=== PATIENT | male | born 1930 | race Caucasian/White ===

== ENCOUNTER 2016-09-21 10:45 | Outpatient (CLI) | payer MEDICARE, BC ==
--- NOTE | 2016-09-21 18:35 | RAD ---
LEFT ELBOW 4 VIEWS: DATE: 09/21/16. No acute fracture was seen. A small joint effusion is suggested. There are some bony fragments jocelyn ng the medial and lateral aspects of the distal humerus that have the appearance of old injuries. O steophytes are seen in the joint. IMPRESSION: Small joint effusion and old traumatic changes. POS: HOME
== END 2016-09-21 10:46 | disposition home or self-care (01) ==
LOC: BURRAD 10:45
PROVIDERS: ATTEND Family Medicine
DX: M25.522 Pain in left elbow (principal)

== ENCOUNTER 2017-04-07 10:17 | Outpatient (CLI) | payer MEDICARE, BC ==
[2017-04-07 12:38] LABS: #Basophils 0.1 thou/uL (0.0-0.2); #Eosinphils 0.4 thou/uL (0.0-0.7); #Lymphocytes 1.5 thou/uL (1.20-3.40); #Monocytes 0.6 thou/uL (0.11-0.59); #Neutrophils 4.1 thou/uL (1.40-6.50); %Basophils 0.8 % (0.0-1.0); %Eosinophils 5.6 % (0.0-10.0); %Lymphocytes 23.3 % (21.0-51.0); %Monocytes 8.5 % (0.0-10.0); %Neutrophils 61.8 % (42.0-75.0); Hemoglobin 11.9 g/dL (14.0-18.0); Mean Corpuscular HGB CONC 33.9 g/dL (32.0-36.0); Mean Corpuscular Hemoglobin 33.6 pg (27.0-31.0); Mean Corpuscular Volume 99.2 fl (80.0-94.0); Mean Platelet Volume 6.5 fL (7.4-10.4); Platelet Count 225 thou/uL (130-400); RBC Distribution Width 12.7 % (11.5-14.5); Red Blood Cell (RBC) Count 3.53 mill/uL (4.70-6.10); White Blood Cell (WBC) Count 6.6 thou/uL (4.8-10.8)
[2017-04-07 12:51] LABS: ALT (SGPT) 19 U/L (8-55); AST (SGOT) 24 U/L (5-34); Albumin 4.1 g/dL (3.4-4.8); Alkaline Phosphatase 65 U/L (40-150); Anion Gap 12 mmol/L (10-20); BUN (Urea Nitrogen) 34 mg/dL (8.4-25.7); Bilirubin, Total 0.7 mg/dL (0.2-1.2); Calc. Creatinine Clearance 0 mL/min (70-130); Calcium 9.3 mg/dL (7.8-10.44); Carbon Dioxide 28 mmol/L (23-31); Cardiac Risk 2.4 (Less than 4.5); Chloride 109 mmol/L (98-107); Cholesterol 161 mg/dl (< 200 Desired); Estimated GFR-MDRD 54; Globulin 2.5 g/dL (2.4-3.5); Glucose 97 mg/dL (83-110); HDL Cholesterol 68 mg/dL (>60 Neg Risk); LDL Cholesterol, Calculated 87 mg/dL; Potassium 5.5 mmol/L (3.5-5.1); Protein, Total 6.6 g/dL (5.8-8.1); Sodium 143 mmol/L (136-145); Triglycerides 31 mg/dL (Less than 150)
== END 2017-04-07 10:18 | disposition home or self-care (01) ==
LOC: HPCALD 10:17
PROVIDERS: ATTEND Family Medicine
DX: E78.5 Hyperlipidemia, unspecified (principal); D53.9 Nutritional anemia, unspecified; I10 Essential (primary) hypertension
CPT/HCPCS: 36415; 80053; 80061; 84443; 85025

== ENCOUNTER 2017-04-15 10:56 | Outpatient (CLI) | payer MEDICARE, BC ==
[2017-04-15 11:35] LABS: Anion Gap 14 mmol/L (10-20); BUN (Urea Nitrogen) 30 mg/dL (8.4-25.7); Calc. Creatinine Clearance 0 mL/min (70-130); Calcium 8.4 mg/dL (7.8-10.44); Carbon Dioxide 24 mmol/L (23-31); Chloride 108 mmol/L (98-107); Estimated GFR-MDRD 57; Glucose 71 mg/dL (83-110); Potassium 4.8 mmol/L (3.5-5.1); Sodium 141 mmol/L (136-145)
== END 2017-04-15 10:57 | disposition home or self-care (01) ==
LOC: HPCALD 10:56
PROVIDERS: ATTEND Family Medicine
DX: I10 Essential (primary) hypertension (principal)
CPT/HCPCS: 36415; 80048

== ENCOUNTER 2020-01-13 16:29 | Emergency (ER) | payer MEDICARE, BC ==
[2020-01-13 17:31] LABS: ALT (SGPT) 126 U/L (8-55); AST (SGOT) 103 U/L (5-34); Albumin 4.2 g/dL (3.4-4.8); Alkaline Phosphatase 130 U/L (40-110); Anion Gap 24 mmol/L (10-20); BUN (Urea Nitrogen) 61 mg/dL (8.4-25.7); Bilirubin, Total 1.4 mg/dL (0.2-1.2); CK (CPK) 325 U/L (30-200); Calc. Creatinine Clearance 0 mL/min (70-130); Calcium 10.1 mg/dL (7.8-10.44); Carbon Dioxide 15 mmol/L (23-31); Chloride 101 mmol/L (98-107); Estimated GFR-MDRD 26; Globulin 3.1 g/dL (2.4-3.5); Glucose 111 mg/dL (83-110); Lipase 41 U/L (8-78); Potassium 6.2 mmol/L (3.5-5.1); Protein, Total 7.3 g/dL (5.8-8.1); Sodium 134 mmol/L (136-145)
[2020-01-13 17:32] LABS: Hemoglobin 14.6 g/dL (14.0-18.0); Lymphocytes 20 % (21-51); MDiff Complete? YES; Macrocytosis SLIGHT = 6-15 cells (100X) (0-5/hpf); Mean Corpuscular HGB CONC 31.6 g/dL (32.0-36.0); Mean Corpuscular Hemoglobin 33.3 pg (27.0-31.0); Mean Platelet Volume 7.7 fL (7.4-10.4); Monocytes 3 % (0-10); Neutrophil 77 % (42-75); Platelet Count 328 thou/uL (130-400); RBC Distribution Width 14.3 % (11.5-14.5); Red Blood Cell (RBC) Count 4.39 mill/uL (4.70-6.10); White Blood Cell (WBC) Count 7.9 thou/uL (4.8-10.8)
[2020-01-13 17:54] LABS: CKMB 12.1 ng/mL (0-6.6)
[2020-01-13] MEDS ORDERED: Aspirin Chewable 81 MG TAB ONE (18:58)
[2020-01-13] MEDS ORDERED: Metoprolol Tartrate 5 MG/5 ML VIAL ONE (18:58)
--- NOTE | 2020-01-14 07:40 | CT ---
CT ABDOMEN AND PELVIS WITHOUT CONTRAST: Date: 01/13/[address] of the abdomen and pelvis was done for evaluation of chest and abdominal pain. The exam was done without IV contrast due to a very low GFR. Moderate bilateral pleural effusions are present, right greater than left. The visible portions of th e lung bases were clear except for some minimal atelectasis. The vessels themselves did not appear ma rkedly congested. The heart is quite large. No pericardial effusions are seen. A large cystic lesion is seen in the left lobe of the liver measuring up to 4.6 cm in size. Additiona lly, multiple renal cysts are present bilaterally, the largest attached to the lower pole of the righ t kidney measuring 5.2 cm and the largest associated with the upper pole of the left kidney measuring 4.5 cm. It has another cyst immediately adjacent to it that may even be attached to it that measures 6.7 cm. No gross hydronephrosis seen in either kidney. The spleen is not large. The pancreas was unr emarkable within the limitations of a noncontrast study. A trace of ascites is present. The adrenal g lands do not appear enlarged. The abdominal aorta is ectatic, but unremarkable in size for age. Calci fication is seen within it, but it is not excessive. The soft tissues in this patient seem edematous and reticulated. This is true in the superficial soft tissues and just generally throughout the entire abdomen. There are no distended loops of bowel to s uggest obstruction. No bowel thickening seen. CT of the pelvis shows a mildly enlarged prostate and some mild concentric thickening of the urinary bladder, most likely due to chronic outlet obstruction. No masses were seen. Degenerative changes pre sent throughout the spine. IMPRESSION: 1. Moderate bilateral pleural effusions. Lower lobes clear. Heart quite large. 2. Trace ascites and the patient's soft tissues appear edematous. In general, the fluid status of th e patient seems to be adversely affected. 3. Renal and hepatic cysts, probably of no concern at this time. 4. Major organs unremarkable otherwise. No sign of bowel obstruction. 5. No evidence of aortic aneurysm. Preliminary report called to Dr. Sorto at 1812 hours on 01/13/2020. CODE CR. POS: HOME
--- NOTE | 2020-01-14 07:42 | CT ---
CT OF THE BRAIN WITHOUT CONTRAST: Date: 01/13/2020 Comparison made with prior study of 04/01/2010. The ventricles are normal in size for age and atrophy. There is no sign of intracranial bleeding, mas s, or edema. Mild chronic ischemic changes are seen in the deep white matter, certainly no worse than expected for age. The skull was unremarkable in appearance. The visible portions of the paranasal si nuses and mastoid air cells were clear. IMPRESSION: Expected atrophic changes, but no acute findings. Preliminary report called to Dr. Sorto at 1812 hours on 01/31/2020. CODE CR. POS: HOME
--- NOTE | 2020-01-14 07:44 | RAD ---
PORTABLE CHEST: Date: 01/13/2020 An AP portable film at 1707 hours is compared with the 10/24/2013 exam. The heart is enlarged and much more so than it was previously. Nevertheless, there does not appear to be any prominent vascular congestion. Some small effusions are present. No lobar infiltrate seen. IMPRESSION: Cardiomegaly and small effusions, but no congestion of the vessels. POS: HOME
== END 2020-01-13 18:40 | disposition short-term general hospital (02) ==
LOC: BURERS 16:29
DX: I21.4 Non-ST elevation (NSTEMI) myocardial infarction (principal); I48.91 Unspecified atrial fibrillation; R60.1 Generalized edema; N28.9 Disorder of kidney and ureter, unspecified; Z79.899 Other long term (current) drug therapy; Z79.82 Long term (current) use of aspirin
CPT/HCPCS: 70450; 71045; 74176; 80053; 82550; 82553; 83690; 84484; 85025; 93005; 96361; 96374